=== PATIENT | male | born 1965 | race Caucasian/White ===

== ENCOUNTER 2025-09-13 22:03 | Inpatient (IN) | payer MEDICARE, MEDICAID ==
[~2025-09-13] VITALS: Ht 172.7 cm; Wt 80.8 kg
[2025-09-13 22:09] VITALS: O2SAT 100
[2025-09-13 23:36] LABS: CLARITY URINE CLOUDY (CLEAR); COLOR URINE DARK YELLOW (YELLOW); GLUCOSE URINE NEGATIVE (NEGATIVE); KETONES URINE TRACE (NEGATIVE); LEUKOCYTE ESTERASE URINE TRACE (NEGATIVE); NITRITE URINE POSITIVE (NEGATIVE); OCCULT BLOOD URINE NEGATIVE (NEGATIVE); PH URINE 5.0 (4.5-8.0); PROTEIN URINE 1+ (NEGATIVE); SPECIFIC GRAVITY URINE 1.020 (1.005-1.030); UROBILINOGEN URINE 2.0 E.U./dL (0.2-1.0)
[2025-09-13 23:39] LABS: HEMATOCRIT. 33.3 % (42.0-52.0); HEMOGLOBIN. 11.1 g/dL (14.0-18.0); MEAN PLATELET VOLUME 8.5 fl (7.4-10.4); PLATELET 72 x1000/uL (130-400); RED BLOOD CELL COUNT 3.49 mill/uL (4.7-6.1); RED CELL DISTRIBUTION WIDTH 15.6 % (11.6-14.6)
[2025-09-13 23:44] LABS: *AMPHETAMINES SCREEN URINE NEGATIVE (NEGATIVE); *BARBITURATES SCREEN URINE NEGATIVE (NEGATIVE); *BENZODIAZEPINES SCREEN URINE NEGATIVE (NEGATIVE); *COCAINE SCREEN URINE NEGATIVE (NEGATIVE); CREATININE 1.9 mg/dL (0.6-1.3); UREA NITROGEN BLOOD 17 mg/dL (9-23)
[2025-09-13 23:45] LABS: CANNABINOID URINE SCREEN NEGATIVE (NEGATIVE); ECSTASY MDMA SCREEN URINE NEGATIVE (NEGATIVE); METHADONE URINE SCREEN NEGATIVE (NEGATIVE); OPIATES URINE SCREEN NEGATIVE (NEGATIVE); PHENCYCLIDINE URINE SCREEN NEGATIVE (NEGATIVE)
[2025-09-13 23:46] LABS: ASPARTATE AMINOTRANSFERASE 334 IU/L (<34); BILIRUBIN DIRECT 3.9 mg/dL (<=3.0); TROPONIN I HIGH SENSITIVITY 4 ng/L (3.0-53)
[2025-09-13 23:47] LABS: BILIRUBIN TOTAL 5.1 mg/dL (0.1-1.0); PROTEIN TOTAL 7.4 g/dL (6.0-8.3)
[2025-09-14 00:21] LABS: INR 1.2
[2025-09-14 00:30] LABS: BACTERIA URINE TRACE; RBC URINE NONE SEEN /hpf (0-2); SQUAMOUS EPITHELIAL CELL URINE 1+ /lpf (RARE/1+); WBC URINE NONE SEEN /hpf (0-2)
[2025-09-14 00:31] LABS: BAND% 3.0 % (1.0-6.0); FINE GRANULAR CASTS URINE TNTC /lpf; LYMPHOCYTES % MANUAL 18.0 % (20.0-50.0); METAMYELOCYTES % 5.0 % (0-0); MONOCYTES % MANUAL 8.0 % (2.0-8.0); MYELOCYTES % 2.0 % (0-0); NEUTROPHILS % MANUAL 64.0 % (45.0-75.0)
[2025-09-14 00:32] LABS: PLATELET ESTIMATE DECREASED
[2025-09-14] MEDS: PANTOPRAZOLE SODIUM 40 MG/VIAL IV ONE (00:39)
[2025-09-14 01:51] LABS: TROPONIN I HIGH SENSITIVITY 4 ng/L (3.0-53)
[2025-09-14 04:00] VITALS: BP 109/63; PULSE 91; RESP 19; TEMP 36.8; O2SAT 99
[2025-09-14 04:16] VITALS: BP 158/80; PULSE 90; RESP 19; TEMP 36.418
[2025-09-14] MEDS: DEXT 5%/0.45% NACL 1000ML 1,000 ML IV SCH (06:22)
[2025-09-14] MEDS ORDERED: IOHEXOL-300 100 ML BOTTLE ONE (07:05)
[2025-09-14 08:00] VITALS: BP 112/59; PULSE 89; RESP 16; TEMP 36.7; O2SAT 97
[2025-09-14] MEDS ORDERED: ONDANSETRON HCL 4MG/2ML INJ IV PRN (08:30)
[2025-09-14] MEDS: PANTOPRAZOLE SODIUM 40 MG/VIAL IV SCH ×2 (09:04→22:44)
[2025-09-14] MEDS: FOLIC ACID 1MG TABLET PO SCH (09:37)
[2025-09-14] MEDS: MULTIVITAMINS,THER W-MINERALS TABLET PO SCH (09:37)
[2025-09-14] MEDS: THIAMINE HCL 100 MG in SODIUM CHLORIDE 0.9% 99 ML IV SCH (11:15)
[2025-09-14 12:00] VITALS: BP 125/63; PULSE 76; RESP 15; TEMP 36.6; O2SAT 98
[2025-09-14 12:28] LABS: HEMATOCRIT. 28.4 % (42.0-52.0); HEMOGLOBIN. 9.5 g/dL (14.0-18.0); RED BLOOD CELL COUNT 2.98 mill/uL (4.7-6.1); RED CELL DISTRIBUTION WIDTH 15.5 % (11.6-14.6)
[2025-09-14 12:39] LABS: INR 1.3
[2025-09-14 12:43] LABS: CREATININE 1.7 mg/dL (0.6-1.3); UREA NITROGEN BLOOD 17.0 mg/dL (9-23)
[2025-09-14] MEDS: LACTULOSE 20G/30ML UDC PO SCH (13:39)
[2025-09-14] MEDS: CHLORDIAZEPOXIDE 25MG CAPSULE PO SCH (13:39)
[2025-09-14 16:00] VITALS: BP 122/69; PULSE 72; RESP 19; TEMP 36.6; O2SAT 97
[2025-09-14] MEDS: POLYVINYL ALCOHOL OPHTH DROPS 15ML BOTHEYE PRN (18:08)
[2025-09-14] MEDS ORDERED: DEXTROSE 50% WATER 50ML SYRINGE IV PRN (19:45)
[2025-09-14 20:00] VITALS: BP 111/69; PULSE 71; RESP 18; TEMP 36.6; O2SAT 99
[2025-09-14] MEDS: BLOOD SUGAR DIAGNOSTIC STRIP TEST SCH (21:00)
[2025-09-14] MEDS: CARVEDILOL 3.125 MG TABLET PO SCH (22:35)
[2025-09-14] MEDS: INSULIN LISPRO 100 UNITS/ML SUBCUT SCH (22:40)
[2025-09-14 22:59] LABS: BAND% 4.0 % (1.0-6.0); LYMPHOCYTES % MANUAL 13.0 % (20.0-50.0); MONOCYTES % MANUAL 11.0 % (2.0-8.0); NEUTROPHILS % MANUAL 72.0 % (45.0-75.0); NUCLEATED RED BLOOD CELLS 1 /100 WBC; PLATELET ESTIMATE MARKEDLY DECREASED
[2025-09-14 23:03] LABS: PLATELET 45 x1000/uL (130-400)
[2025-09-15] VITALS (9 sets, daily range): BP systolic 98–151; BP diastolic 53–88; PULSE 57–71; RESP 14–20; TEMP 35.9–36.7; O2SAT 96–99
[2025-09-15 05:54] LABS: HEMATOCRIT. 27.9 % (42.0-52.0); HEMOGLOBIN. 9.4 g/dL (14.0-18.0); MEAN PLATELET VOLUME 7.9 fl (7.4-10.4); RED BLOOD CELL COUNT 2.94 mill/uL (4.7-6.1); RED CELL DISTRIBUTION WIDTH 15.4 % (11.6-14.6)
[2025-09-15 06:07] LABS: INR 1.3
[2025-09-15 06:22] LABS: BILIRUBIN TOTAL 4.7 mg/dL (0.1-1.0)
[2025-09-15 06:23] LABS: PLATELET 35 x1000/uL (130-400)
[2025-09-15 06:24] LABS: CREATININE 1.7 mg/dL (0.6-1.3)
[2025-09-15 06:25] LABS: UREA NITROGEN BLOOD 18 mg/dL (9-23)
[2025-09-15 06:26] LABS: ASPARTATE AMINOTRANSFERASE 248 IU/L (<34); BILIRUBIN DIRECT 3.2 mg/dL (<=3.0)
[2025-09-15 06:27] LABS: PHOSPHORUS 1.8 mg/dL (2.5-4.9); PROTEIN TOTAL 6.2 g/dL (6.0-8.3)
[2025-09-15 06:44] LABS: FOLIC ACID (FOLATE) SERUM 19.64 ng/mL (>5.38)
[2025-09-15 07:02] LABS: VITAMIN B12 SERUM 2531 pg/mL (211-911)
[2025-09-15 13:53] LABS: BAND% 3.0 % (1.0-6.0); EOSINOPHILS % MANUAL 3.0 % (0.0-5.0); LYMPHOCYTES % MANUAL 12.0 % (20.0-50.0); MONOCYTES % MANUAL 12.0 % (2.0-8.0); MYELOCYTES % 1.0 % (0-0); NEUTROPHILS % MANUAL 69.0 % (45.0-75.0); NUCLEATED RED BLOOD CELLS 1 /100 WBC; PLATELET ESTIMATE MARKEDLY DECREASED
[2025-09-16] VITALS (9 sets, daily range): BP systolic 72–196; BP diastolic 42–100; PULSE 69–98; RESP 16–18; TEMP 35.8–36.5; O2SAT 98–100
[2025-09-16 08:19] LABS: HEMATOCRIT. 31.9 % (42.0-52.0); HEMOGLOBIN. 10.7 g/dL (14.0-18.0); MEAN PLATELET VOLUME 9.0 fl (7.4-10.4); PLATELET 55 x1000/uL (130-400); RED BLOOD CELL COUNT 3.35 mill/uL (4.7-6.1); RED CELL DISTRIBUTION WIDTH 15.5 % (11.6-14.6)
[2025-09-16] MEDS: CLONIDINE 0.1MG TABLET PO PRN (08:25)
[2025-09-16 08:30] LABS: CREATININE 1.7 mg/dL (0.6-1.3)
[2025-09-16 08:31] LABS: UREA NITROGEN BLOOD 17 mg/dL (9-23)
[2025-09-16 08:32] LABS: ASPARTATE AMINOTRANSFERASE 210 IU/L (<34)
[2025-09-16 08:33] LABS: BILIRUBIN TOTAL 4.4 mg/dL (0.1-1.0); PROTEIN TOTAL 6.8 g/dL (6.0-8.3)
[2025-09-16] MEDS ORDERED: LIDOCAINE HCL 1% 10 MG/ML 10ML VIAL ONE (08:42)
[2025-09-16] MEDS ORDERED: SODIUM BICARBONATE 4.2% 2.5MEQ/5ML VIAL IV ONE (08:43)
[2025-09-16] MEDS: VITAMINS A AND D OINT TUBE TOP SCH (09:00)
[2025-09-16 13:10] LABS: BODY FLUID WBC 21 /cu mm (0-200)
[2025-09-16 13:12] LABS: BODY FLUID RBC 3520 /cu mm (0-2000)
[2025-09-16] MEDS: CHLORDIAZEPOXIDE 25MG CAPSULE PO SCH (13:14)
[2025-09-16] MEDS: POTASSIUM CHLORIDE 20MEQ TABLET SR PO SCH (13:14)
[2025-09-16] MEDS: LORAZEPAM 2MG/ML UD SYRINGE IV PRN (14:54)
[2025-09-16 16:01] LABS: CLARITY URINE CLEAR (CLEAR); COLOR URINE DARK YELLOW (YELLOW); GLUCOSE URINE NEGATIVE (NEGATIVE); KETONES URINE TRACE (NEGATIVE); LEUKOCYTE ESTERASE URINE TRACE (NEGATIVE); NITRITE URINE NEGATIVE (NEGATIVE); OCCULT BLOOD URINE NEGATIVE (NEGATIVE); PH URINE 5.5 (4.5-8.0); PROTEIN URINE 1+ (NEGATIVE); SPECIFIC GRAVITY URINE 1.018 (1.005-1.030); UROBILINOGEN URINE 1.0 E.U./dL (0.2-1.0)
[2025-09-16] MEDS: CEFTRIAXONE 1GM/50ML 50 ML IV SCH (17:30)
[2025-09-16 21:22] LABS: BACTERIA URINE TRACE; RBC URINE NONE SEEN /hpf (0-2); SQUAMOUS EPITHELIAL CELL URINE FEW /lpf (RARE/1+)
[2025-09-16 21:23] LABS: WBC URINE 0-2 /hpf (0-2)
[2025-09-16] MEDS: ALBUMIN HUMAN 25GM/100ML (25%) IV SCH (22:25)
[2025-09-17] VITALS: BP 162/66; PULSE 65; RESP 18; TEMP 36.4; O2SAT 99
[2025-09-17 04:00] VITALS: BP 174/92; PULSE 70; RESP 18; TEMP 36.5; O2SAT 99
[2025-09-17 05:03] LABS: EOSINOPHILS % MANUAL 2.0 % (0.0-5.0); LYMPHOCYTES % MANUAL 18.0 % (20.0-50.0); METAMYELOCYTES % 1.0 % (0-0); MONOCYTES % MANUAL 12.0 % (2.0-8.0); MYELOCYTES % 4.0 % (0-0); NEUTROPHILS % MANUAL 63.0 % (45.0-75.0); PLATELET ESTIMATE DECREAS
[2025-09-17 08:00] VITALS: BP 154/84; PULSE 73; RESP 15; TEMP 36.5; O2SAT 100
[2025-09-17 11:46] LABS: CREATININE 1.5 mg/dL (0.6-1.3); UREA NITROGEN BLOOD 16 mg/dL (9-23)
[2025-09-17 11:48] LABS: ASPARTATE AMINOTRANSFERASE 170 IU/L (<34); BILIRUBIN TOTAL 3.3 mg/dL (0.1-1.0); PROTEIN TOTAL 5.6 g/dL (6.0-8.3)
[2025-09-17 12:00] VITALS: BP 105/55; PULSE 55; RESP 18; TEMP 36.3; O2SAT 95
[2025-09-17] MEDS: POTASSIUM CHLORIDE 20MEQ/PACKET PO NR (12:45)
[2025-09-17 13:18] LABS: HEMATOCRIT. 28.9 % (42.0-52.0); HEMOGLOBIN. 9.7 g/dL (14.0-18.0); RED BLOOD CELL COUNT 3.00 mill/uL (4.7-6.1); RED CELL DISTRIBUTION WIDTH 15.7 % (11.6-14.6)
[2025-09-17 14:04] LABS: BAND% 4.0 % (1.0-6.0); LYMPHOCYTES % MANUAL 17.0 % (20.0-50.0); MONOCYTES % MANUAL 14.0 % (2.0-8.0); NEUTROPHILS % MANUAL 65.0 % (45.0-75.0)
[2025-09-17 14:05] LABS: PLATELET ESTIMATE DECREASED
[2025-09-17 14:10] LABS: PLATELET 42 x1000/uL (130-400)
[2025-09-17 16:00] VITALS: BP 101/62; PULSE 59; RESP 19; TEMP 36.9; O2SAT 97
[2025-09-17 20:00] VITALS: BP 120/64; PULSE 60; RESP 18; TEMP 36.2; O2SAT 99
[2025-09-18] VITALS: BP 110/65; PULSE 51; RESP 20; TEMP 36.3; O2SAT 100
[2025-09-18 04:00] VITALS: BP 138/68; PULSE 53; RESP 19; TEMP 36.3; O2SAT 99
[2025-09-18 07:09] LABS: CREATININE 1.4 mg/dL (0.6-1.3); UREA NITROGEN BLOOD 14.0 mg/dL (9-23)
[2025-09-18 08:00] VITALS: BP 124/63; PULSE 59; RESP 19; TEMP 36.1; O2SAT 97
[2025-09-18 09:31] LABS: HEMATOCRIT. 30.9 % (42.0-52.0); HEMOGLOBIN. 10.4 g/dL (14.0-18.0); MEAN PLATELET VOLUME 9.5 fl (7.4-10.4); RED BLOOD CELL COUNT 3.18 mill/uL (4.7-6.1); RED CELL DISTRIBUTION WIDTH 16.1 % (11.6-14.6)
[2025-09-18 09:39] LABS: PLATELET 50 x1000/uL (130-400)
[2025-09-18 12:00] VITALS: BP 143/72; PULSE 51; RESP 15; TEMP 36.1; O2SAT 96
[2025-09-18 16:00] VITALS: BP 122/67; PULSE 47; RESP 15; TEMP 36; O2SAT 100
[2025-09-18 20:00] VITALS: BP 141/113; PULSE 63; RESP 20; TEMP 36.2; O2SAT 98
[2025-09-19] VITALS: BP 128/65; PULSE 47; RESP 20; TEMP 35.7; O2SAT 97
[2025-09-19 04:00] VITALS: BP 155/73; PULSE 51; RESP 19; TEMP 35.8; O2SAT 98
[2025-09-19 06:23] LABS: BAND% 12.0 % (1.0-6.0); EOSINOPHILS % MANUAL 1.0 % (0.0-5.0); LYMPHOCYTES % MANUAL 17.0 % (20.0-50.0); MONOCYTES % MANUAL 14.0 % (2.0-8.0); MYELOCYTES % 2.0 % (0-0); NEUTROPHILS % MANUAL 54.0 % (45.0-75.0); NUCLEATED RED BLOOD CELLS 1 /100 WBC; PLATELET ESTIMATE MARKEDLY DECREASED
[2025-09-19 08:00] VITALS: BP 124/63; PULSE 56; RESP 19; TEMP 36.1; O2SAT 97
[2025-09-19 08:13] LABS: HEMATOCRIT. 28.5 % (42.0-52.0); HEMOGLOBIN. 9.7 g/dL (14.0-18.0); MEAN PLATELET VOLUME 9.2 fl (7.4-10.4); RED BLOOD CELL COUNT 3.00 mill/uL (4.7-6.1); RED CELL DISTRIBUTION WIDTH 15.9 % (11.6-14.6)
[2025-09-19 08:18] LABS: CREATININE 1.1 mg/dL (0.6-1.3); UREA NITROGEN BLOOD 14 mg/dL (9-23)
[2025-09-19] MEDS: POTASSIUM CHLORIDE 20MEQ TABLET SR PO SCH (09:15)
[2025-09-19 09:17] LABS: PLATELET 48 x1000/uL (130-400)
[2025-09-19] MEDS: KCL 10MEQ/50ML PREMIX 50 ML IV SCH (11:50)
[2025-09-19 12:00] VITALS: BP 141/72; PULSE 52; RESP 20; TEMP 36.6; O2SAT 99
[2025-09-19 16:00] VITALS: BP 144/80; PULSE 58; RESP 18; TEMP 36.4; O2SAT 99
[2025-09-19 17:29] LABS: EOSINOPHILS % MANUAL 2.0 % (0.0-5.0); LYMPHOCYTES % MANUAL 19.0 % (20.0-50.0); MONOCYTES % MANUAL 9.0 % (2.0-8.0); NEUTROPHILS % MANUAL 70.0 % (45.0-75.0); PLATELET ESTIMATE MARKEDLY DECREASED
[2025-09-19 20:00] VITALS: BP 110/64; PULSE 50; RESP 18; TEMP 36.6; O2SAT 100
[2025-09-20] VITALS: BP 123/62; PULSE 49; RESP 18; TEMP 36.4; O2SAT 100
[2025-09-20 04:00] VITALS: BP 130/72; PULSE 56; RESP 18; TEMP 36.6; O2SAT 100
[2025-09-20 08:00] VITALS: BP 131/63; PULSE 57; RESP 16; TEMP 36.2; O2SAT 100
[2025-09-20] MEDS: ARIPIPRAZOLE 5MG TABLET PO SCH (08:43)
[2025-09-20 12:00] VITALS: BP 100/58; PULSE 55; RESP 14; TEMP 36.2; O2SAT 97
[2025-09-20 13:13] LABS: HEMATOCRIT. 29.7 % (42.0-52.0); HEMOGLOBIN. 9.9 g/dL (14.0-18.0); MEAN PLATELET VOLUME 9.4 fl (7.4-10.4); RED BLOOD CELL COUNT 3.08 mill/uL (4.7-6.1); RED CELL DISTRIBUTION WIDTH 16.2 % (11.6-14.6)
[2025-09-20 13:21] LABS: CREATININE 1.2 mg/dL (0.6-1.3); UREA NITROGEN BLOOD 12 mg/dL (9-23)
[2025-09-20 13:33] LABS: PLATELET 45 x1000/uL (130-400)
[2025-09-20 16:00] VITALS: BP 102/55; PULSE 57; RESP 15; TEMP 36.3; O2SAT 99
[2025-09-20 20:00] VITALS: BP 105/56; PULSE 53; RESP 16; TEMP 36.4; O2SAT 99
[2025-09-21] VITALS (7 sets, daily range): BP systolic 94–146; BP diastolic 40–78; PULSE 57–78; RESP 16–19; TEMP 34.4–36.7; O2SAT 95–100
[2025-09-21 06:58] LABS: HEMATOCRIT. 28.4 % (42.0-52.0); HEMOGLOBIN. 9.5 g/dL (14.0-18.0); MEAN PLATELET VOLUME 9.5 fl (7.4-10.4); RED BLOOD CELL COUNT 2.94 mill/uL (4.7-6.1); RED CELL DISTRIBUTION WIDTH 16.6 % (11.6-14.6)
[2025-09-21 07:13] LABS: CREATININE 1.2 mg/dL (0.6-1.3); UREA NITROGEN BLOOD 12 mg/dL (9-23)
[2025-09-21 08:04] LABS: PLATELET 48 x1000/uL (130-400)
[2025-09-21] MEDS: POTASSIUM CHLORIDE 20MEQ/PACKET PO SCH (10:11)
[2025-09-21] MEDS: ARIPIPRAZOLE 5MG TABLET PO SCH (10:12)
[2025-09-21 14:26] LABS: BAND% 7.0 % (1.0-6.0); EOSINOPHILS % MANUAL 3.0 % (0.0-5.0); LYMPHOCYTES % MANUAL 16.0 % (20.0-50.0); MONOCYTES % MANUAL 20.0 % (2.0-8.0); NEUTROPHILS % MANUAL 54.0 % (45.0-75.0); PLATELET ESTIMATE MARKEDLY DECREASED
[2025-09-22] VITALS: BP 137/64; PULSE 59; RESP 18; TEMP 35.8; O2SAT 99
[2025-09-22 04:00] VITALS: BP 117/65; PULSE 64; RESP 18; TEMP 36.6; O2SAT 99
[2025-09-22 08:00] VITALS: BP 130/76; PULSE 72; RESP 18; TEMP 36.2; O2SAT 99
[2025-09-22 09:12] LABS: HEMATOCRIT. 29.4 % (42.0-52.0); HEMOGLOBIN. 9.8 g/dL (14.0-18.0); MEAN PLATELET VOLUME 8.9 fl (7.4-10.4); PLATELET 52 x1000/uL (130-400); RED BLOOD CELL COUNT 3.04 mill/uL (4.7-6.1); RED CELL DISTRIBUTION WIDTH 15.9 % (11.6-14.6)
[2025-09-22 09:30] LABS: CREATININE 1.2 mg/dL (0.6-1.3)
[2025-09-22 09:32] LABS: UREA NITROGEN BLOOD 11 mg/dL (9-23)
[2025-09-22 11:30] LABS: BAND% 7.0 % (1.0-6.0); LYMPHOCYTES % MANUAL 12.0 % (20.0-50.0); MONOCYTES % MANUAL 17.0 % (2.0-8.0); NEUTROPHILS % MANUAL 64.0 % (45.0-75.0); PLATELET ESTIMATE MARKEDLY DECREASED
[2025-09-22 12:00] VITALS: BP 150/86; PULSE 84; RESP 18; TEMP 35.9; O2SAT 98
[2025-09-22 16:00] VITALS: BP 145/74; PULSE 70; RESP 18; TEMP 36.2; O2SAT 96
[2025-09-22] MEDS ORDERED: FOLI-43 PO (17:31)
[2025-09-22] MEDS ORDERED: LACT-390 PO (17:31)
[2025-09-22] MEDS ORDERED: ABIL5 PO (17:31)
[2025-09-22] MEDS ORDERED: THIA50TA12 MT (17:31)
[2025-09-22 19:35] LABS: BAND% 3.0 % (1.0-6.0); EOSINOPHILS % MANUAL 3.0 % (0.0-5.0); LYMPHOCYTES % MANUAL 3.0 % (20.0-50.0); MONOCYTES % MANUAL 11.0 % (2.0-8.0); NEUTROPHILS % MANUAL 80.0 % (45.0-75.0); PLATELET ESTIMATE DECREASED
== END 2025-09-22 20:55 | disposition home or self-care (01) | DRG 433 ==
LOC: ER 22:03 → 6WST 09-14 02:14 → EDBEDREQDT 09-14 02:21 → EDBEDREQTM 09-14 02:21 → EDBEDREQ 09-14 02:21
PROVIDERS: ADMIT Internal Medicine; ATTEND Internal Medicine
PROC: 0W9G3ZZ Drainage of Peritoneal Cavity, Percutaneous Approach (ICD-10-PCS; principal; 2025-09-16)
PROC: 30233R1 Transfusion of Nonautologous Platelets into Peripheral Vein, Percutaneous Approach (ICD-10-PCS; 2025-09-22)
DX: K74.60 Unspecified cirrhosis of liver (principal); D61.818 Other pancytopenia; K92.2 Gastrointestinal hemorrhage, unspecified; K56.7 Ileus, unspecified; N17.9 Acute kidney failure, unspecified; K76.6 Portal hypertension; D64.9 Anemia, unspecified; E11.22 Type 2 diabetes mellitus with diabetic chronic kidney disease; F10.129 Alcohol abuse with intoxication, unspecified; I12.9 Hypertensive chronic kidney disease with stage 1 through stage 4 chronic kidney disease, or unspecified chronic kidney disease; N18.9 Chronic kidney disease, unspecified; F32.9 Major depressive disorder, single episode, unspecified; R18.8 Other ascites; K52.9 Noninfective gastroenteritis and colitis, unspecified; K80.20 Calculus of gallbladder without cholecystitis without obstruction; L85.3 Xerosis cutis; S30.810A Abrasion of lower back and pelvis, initial encounter; R16.1 Splenomegaly, not elsewhere classified; E87.6 Hypokalemia; Y90.8 Blood alcohol level of 240 mg/100 ml or more; Z96.659 Presence of unspecified artificial knee joint; E80.6 Other disorders of bilirubin metabolism; K44.9 Diaphragmatic hernia without obstruction or gangrene; K42.9 Umbilical hernia without obstruction or gangrene; Z78.1 Physical restraint status; Z79.899 Other long term (current) drug therapy; X58.XXXA Exposure to other specified factors, initial encounter; Y93.89 Activity, other specified; Y92.89 Other specified places as the place of occurrence of the external cause; Y99.8 Other external cause status
CPT/HCPCS: 36415; 49083; 71045; 74177; 76705; 76770; 80048; 80053; 80076; 80305; 80320; 81003; 82040; 82140; 82270; 82607; 82728; 82746; 82962; 83036; 83540; 83550; 83615; 83735; 83880; 84100; 84484; 85025; 85044; 85049; 86850; 86900; 87015; 87045; 87427; 87449; 87493; 88108; 88312; 89055; 93005; 93970; 97116; 97162; 97530; 99285; A4606; A4615; C1729; J0696; J1815; J2003; J2060; J2470; J3411; J3480; J3490; J7050; P9034; P9047; Q9967; G0480